=== PATIENT | male | born 1995 | race African-American/Black ===

== ENCOUNTER 2020-03-10 05:43 | Emergency (ER) | payer OTHER ==
[~2020-03-10] VITALS: Ht 180.3 cm; Wt 68.3 kg
--- NOTE | 2020-03-10 06:47 | Diagnostic Imaging Report ---
Examination: CT head without contrast Clinical Indication: Headaches; right sided tingling and numbness. Technique: Transaxial noncontrast images from the skull base through the vertex were obtained. Sagittal and coronal reformatted images were done. Dose modulation, iterative reconstruction, and/or weight based adjustment of the mA/kV was utilized to reduce the radiation dose to as low as reasonably achievable. Comparison: None . Findings: Scalp: No abnormalities. Bones: Intact. No fractures. No blastic or lytic lesions. Brain sulci: Appropriate for patient's age. Ventricles: Normal in size and configuration. No hydrocephalus. Extra-axial space: No abnormalities. Parenchyma: No abnormal densities. No masses, hemorrhage, or acute or chronic cortical based vascular insults. Suprasellar region: No abnormalities. Craniocervical junction: The foramen magnum is patent. No Chiari one malformation. Impression: No intracranial abnormality. Signed by: Dr. Myla Hays M.D. on 03/10/2020 6:44 AM
--- NOTE | 2020-03-10 06:49 | NUR ---
REPORT TO ONCNEHAL PURVIS
[2020-03-10] MEDS ORDERED: DIPHENHYDRAMINE HCL INJ 50 MG/ML VIAL IV ONE (07:15)
[2020-03-10] MEDS ORDERED: METOCLOPRAMIDE HCL 10 MG/2ML VIAL IV ONE (07:15)
[2020-03-10] MEDS ORDERED: DIPHENHYDRAMINE HCL INJ 50 MG/ML VIAL ONE (07:21)
[2020-03-10] MEDS ORDERED: METOCLOPRAMIDE HCL 10 MG/2ML VIAL ONE ×2 (07:22)
--- NOTE | 2020-03-10 07:23 | Emergency Department Note ---
History of Present Illnes History of Present Illness Chief Complaint: Neurological History of Present Illness This is a 24 year old male with hypertension and lupus presents with right-si ded tingling and weakness between 2 AM and 3AM today. Similar episodes in past in 2017 and 2018 when dx with TIA. Had migraine headache onset 11PM that was 9 out of 10. Headache gradually improved. Similar HAs in past, has had worse 10 out of 10 HAs in past. No difficulty with speech. Patient states that his weakness has improved and is almost back to baseline hour is decreased sensation continues. This past medical history that is significant for TIA in 2017 & 2018. He is not currently on any blood thinners but he has been on in the past after his 2018 TIA for a short period of time. She states he's had frequent headaches and migraines. States he had migraines in the past with the exact same symptoms of right-sided weakness and decreased sensation. He says these occur approximately once a year and he states that his last episode was approximately one year ago. He's had prior MRIs which he says have been unremarkable. His last MRI was in 2018. Historian: Patient Arrival Mode: Car Onset (how long ago): hour(s) (point 2 AM and 3 AM neuro sx, headache 11PM) Location: global headache Quality: dull Radiation: Reports non-radiation Duration (how long): hour(s) Timing of current episode: constant Progression: partially resolved Chronicity: recurrent Relieving factors: none Exacerbating factors: none Associated symptoms: Reports headaches; Denies confusion, Denies chest pain, Denies cough, Denies diaphoresis, Denies fever/chills, Denies loss of appetite, Denies malaise, Denies nausea/vomiting, Denies rash, Denies seizure, Denies shortness of breath, Denies weakness Past Medical/Family History Physician Review I have reviewed the patient's past medical and family history. Any updates have been documented here. Past Medical History Recent Fever: No Clinical Suspicion of Infectio: No New/Unexplained Change in Ment: No Past Medical History: Hypertension, TIA Past Surgical History: None Social History Smoking Cessation: Never Smoker Alcohol Use: None Any Illegal Drug Use: Yes (CHILANGO) Other Any Pre-Existing Lines (PICC,: No Review of Systems Review of Systems Constitutional: Reports no symptoms EENTM: Reports no symptoms Cardiovascular: Reports no symptoms Respiratory: Reports no symptoms Gastrointestinal: Reports no symptoms Genitourinary: Reports no symptoms Integumentary: Denies rash Neurological: Reports as per HPI Hematological/Lymphatic: Reports no symptoms Review of other systems: All other systems negative Physical Exam Related Data Triage Vital Signs Vital Signs Date Time Temp Pulse Resp B/P (MAP) Pulse Ox O2 Delivery O2 Flow Rate FiO2 03/10/20 06:16 98.7 57 18 153/102 100 Room Air Physical Exam CONSTITUTIONAL Constitutional: Present well-developed, Present well-nourished HENT HENT: Present normocephalic, Present atraumatic, Present oropharynx clear/moist, Present nose normal HENT L/R: Present left ext ear normal, Present right ext ear normal EYES Eyes: Reports PERRL, Reports conjunctivae normal NECK Neck: Present ROM normal PULMONARY Pulmonary: Present effort normal, Present breath sounds normal CARDIOVASCULAR Cardiovascular: Present regular rhythm, Present heart sounds normal, Present capillary refill normal, Present normal rate GASTROINTESTINAL Abdominal: Present soft, Present nontender, Present bowel sounds normal GENITOURINARY Genitourinary: Present exam deferred SKIN Skin: Present warm, Present dry MUSCULOSKELETAL Musculoskeletal: Present ROM normal NEUROLOGICAL Neurological: Present oriented x 3, Present DTRs normal, Present sensory deficit (objective decreased sensation entire right upper and lower extremity. Good pinprick reflexes), Present weakness (and strength 4 of 5 with a right senior sql developer and 5 out of 5 left senior sql developer), Present other (there is no dysarthria there is no neglect. A stroke scale is 0.); Absent cranial nerve deficit, Absent abnormal gait PSYCHOLOGICAL Psychological: Present mood/affect normal Results Laboratory Laboratory comments CMP is normal, WBC 6.4, HGB 15.1, HCT 45.2, PLT 130 Imaging Imaging Comments Procedure: [id number] HOPD/CT BRAIN WO-HOPD Exam Date: 03/10/20 Exam Time: 0615 REPORT STATUS: Signed Examination: CT head without contrast Clinical Indication: Headaches; right sided tingling and numbness. Technique: Transaxial noncontrast images from the skull base through the vertex were obtained. Sagittal and coronal reformatted images were done. Dose modulation, iterative reconstruction, and/or weight based adjustment of the mA/kV was utilized to reduce the radiation dose to as low as reasonably achievable. Comparison: None . Findings: Scalp: No abnormalities. Bones: Intact. No fractures. No blastic or lytic lesions. Brain sulci: Appropriate for patient's age. Ventricles: Normal in size and configuration. No hydrocephalus. Extra-axial space: No abnormalities. Parenchyma: No abnormal densities. No masses, hemorrhage, or acute or chronic cortical based vascular insults. Suprasellar region: No abnormalities. Craniocervical junction: The foramen magnum is patent. No Chiari one malformation. Impression: No intracranial abnormality. Signed by: Dr. Myla Hays M.D. on 03/10/2020 6:44 AM Dictated By: MYLA ARCE MD 3 Transcribed By: ALEK on 03/10/20643 Procedures 12 Lead ECG Interpretation ECG Interpretation : ECG: ECG 1 Date: Mar 10, 2020 Time: 06:46 Rhythm: sinus rhythm Rate: normal BPM: 54 QRS axis: right ST segments normal: No Clinical Impression: non-specific ECG Assessment & Plan Medical Decision Making MDM Patient checked out at 7AM. Head CT negative. Patient has headache and rt sided numbness and weakness similar to prior migraines. However, this is complicated by hx of lupus and prior TIA's. Spoke with patient about LP to rule out SAH, and patient declined. Spoke with patient about hospital admission for TIA workup and patient declined. Aware of risk of no further workup including and disability. Patient agreed to medication for migraine headaches and states he will reconsider admission if his symptoms to not resolve with headache treatment. Assessment & Plan Final Impression: (1) Head ache Last Vital Signs Date Time Temp Pulse Resp B/P (MAP) Pulse Ox O2 Delivery O2 Flow Rate FiO2 03/10/20 06:16 98.7 57 18 153/102 100 Room Air ROBYN SHEPARD MD Mar 10, 2020 06:46
--- NOTE | 2020-03-10 07:31 | NUR ---
pt. yelling out in his room. Upon entering room pt. has removed telemetry leads, and pulse ox. Dr. Lau in room with me. Pt. states "I just wanna go." Dr. Lau tries to speak with patient, patient waves hand saying "I just wanna go." Dena removes patient's IV. Dr. Lau and I at station working on patient's discharge paperwork when patient walks out of room and goes towards lobby. Dr. Lau follows patient asking if he needs a work note and his discharge papers. Patient again waves his hand and walks out the door
== END 2020-03-10 07:37 | disposition home or self-care (01) ==
LOC: FSED 06:50
DX: R51 Headache (principal); I10 Essential (primary) hypertension; M32.9 Systemic lupus erythematosus, unspecified; Z86.73 Personal history of transient ischemic attack (TIA), and cerebral infarction without residual deficits
CPT/HCPCS: 70450; 93005; 99284; J1200; J2765